=== PATIENT | male | born 1950 | race Caucasian/White ===

== ENCOUNTER → 2017-01-09 | Outpatient (CLI) | payer MEDICARE, OTHER ==
[~2017-01-09] MED LIST: AMLO2.5T PO; ATOR40TA16 PO; CARV3.12 PO; DORZ2SOL7 EACH EYE; LUMI0.01 EACH EYE; METF500T PO; OMEGCAP PO; [UNRECOGNIZED DRUG - REMARK]
[2017-01-09 13:26] LABS: ALKALINE PHOSPHATASE 80 U/L (45-117); ALT (GPT) 31 U/L (12-78); ANION GAP 8 MEQ/L (5-15); AST (GOT) 19 U/L (15-37); BICARBONATE 28.4 MEQ/L (21.0-32.0); BLOOD UREA NITROGEN 10 MG/DL (7-18); CHLORIDE 107 MEQ/L (98-107); GLOMERULAR FILTRATION RATE 63 ML/MIN (>89); GLUCOSE,FASTING 97 MG/DL (74-99); HDL CHOLESTEROL 53.8 MG/DL (40.0-60.0); LDL CHOLESTEROL 53 MG/DL (0-99); POTASSIUM 4.2 MEQ/L (3.5-5.1); SODIUM (NA) 143 MEQ/L (136-145); TOTAL BILIRUBIN ADULT 0.7 MG/DL (0.2-1.0); URIC ACID 7.2 MG/DL (2.6-7.2)
[2017-01-09 16:21] LABS: HEMOGLOBIN A1a 1.1 %; HEMOGLOBIN A1b 1.5 %; HEMOGLOBIN Ao 85.2 %; HEMOGLOBIN LA1C 2.1 %; HEMOGLOBIN P3 3.7 %
== END ==
LOC: PLAB 09:27
PROVIDERS: ATTEND Family Medicine
DX: I10 Essential (primary) hypertension (principal); E78.2 Mixed hyperlipidemia; E11.9 Type 2 diabetes mellitus without complications; M10.9 Gout, unspecified
CPT/HCPCS: 36415; 80053; 80061; 83036; 84550

== ENCOUNTER → 2017-07-17 | Outpatient (CLI) | payer MEDICARE, OTHER ==
[2017-07-17 13:23] LABS: AUTOMATED NEUTROPHIL # 4.5 TH/MM3 (1.8-7.7); BASOPHIL % 0.5 % (0.0-2.0); EOSINOPHIL # 0.2 TH/MM3 (0-0.4); EOSINOPHIL % 2.5 % (0.0-4.0); HEMATOCRIT 46.4 % (39.0-51.0); HEMO FLAGS DIFF FINAL; LYMPH % 22.9 % (9.0-44.0); LYMPHOCYTE # 1.5 TH/MM3 (1.0-4.8); MEAN CELL VOLUME 94.2 FL (80.0-100.0); MEAN CORPUSCULAR HEMOGLOBIN 31.7 PG (27.0-34.0); MEAN CORPUSCULAR HGB CONC 33.7 % (32.0-36.0); MONO % 6.8 % (0.0-8.0); NEUT % 67.3 % (16.0-70.0); PLATELET COUNT 205 TH/MM3 (150-450); RED BLOOD COUNT 4.93 MIL/MM3 (4.50-5.90); RED CELL DISTRIBUTION WIDTH 14.1 % (11.6-17.2); WHITE BLOOD COUNT 6.7 TH/MM3 (4.0-11.0)
[2017-07-17 13:41] LABS: ANION GAP 5 MEQ/L (5-15); AST (GOT) 16 U/L (15-37); BICARBONATE 25.9 MEQ/L (21.0-32.0); BLOOD UREA NITROGEN 15 MG/DL (7-18); CHLORIDE 109 MEQ/L (98-107); GLOMERULAR FILTRATION RATE 75 ML/MIN (>89); GLUCOSE,FASTING 118 MG/DL (74-99); POTASSIUM 4.4 MEQ/L (3.5-5.1); SODIUM (NA) 140 MEQ/L (136-145)
[2017-07-17 13:42] LABS: ALT (GPT) 23 U/L (12-78); URIC ACID 6.8 MG/DL (2.6-7.2)
[2017-07-17 13:45] LABS: ALKALINE PHOSPHATASE 76 U/L (45-117); HDL CHOLESTEROL 65.1 MG/DL (40.0-60.0); LDL CHOLESTEROL 138 MG/DL (0-99); TOTAL BILIRUBIN ADULT 0.7 MG/DL (0.2-1.0)
[2017-07-17 14:12] LABS: HEMOGLOBIN A1a 1.2 %; HEMOGLOBIN A1b 1.7 %; HEMOGLOBIN Ao 84.5 %; HEMOGLOBIN LA1C 2.4 %; HEMOGLOBIN P3 3.8 %
== END ==
LOC: PLAB 09:08
PROVIDERS: ATTEND Family Medicine
DX: E78.2 Mixed hyperlipidemia (principal); E11.9 Type 2 diabetes mellitus without complications; I10 Essential (primary) hypertension; M10.9 Gout, unspecified; Z12.5 Encounter for screening for malignant neoplasm of prostate
CPT/HCPCS: 36415; 80053; 80061; 83036; 84550; 85025; G0103

== ENCOUNTER → 2018-01-17 | Outpatient (CLI) | payer MEDICARE, OTHER ==
[2018-01-17 10:33] LABS: ALBUMIN 3.9 GM/DL (3.4-5.0); AST (GOT) 22 U/L (15-37); BICARBONATE 27.4 MEQ/L (21.0-32.0); BLOOD UREA NITROGEN 13 MG/DL (7-18); CALCIUM 9.1 MG/DL (8.5-10.1); CHLORIDE 108 MEQ/L (98-107); CREATININE 1.12 MG/DL (0.60-1.30); GLOMERULAR FILTRATION RATE 65 ML/MIN (>89); GLUCOSE,FASTING 119 MG/DL (74-99); SODIUM (NA) 143 MEQ/L (136-145)
[2018-01-17 10:35] LABS: ALT (GPT) 33 U/L (12-78); CHOLESTEROL 150 MG/DL (120-200)
[2018-01-17 10:39] LABS: ALKALINE PHOSPHATASE 73 U/L (45-117); CHOLESTEROL/ HDL RATIO 2.46 RATIO; HDL CHOLESTEROL 60.9 MG/DL (40.0-60.0); LDL CHOLESTEROL 70 MG/DL (0-99); TOTAL BILIRUBIN ADULT 0.7 MG/DL (0.2-1.0); TOTAL PROTEIN 6.8 GM/DL (6.4-8.2); TRIGLYCERIDES 94 MG/DL (42-150)
[2018-01-17 16:21] LABS: HEMOGLOBIN A1C 5.9 % (4.3-6.0)
== END ==
LOC: PLAB 08:36
PROVIDERS: ATTEND Family Medicine
DX: E11.9 Type 2 diabetes mellitus without complications (principal); E78.2 Mixed hyperlipidemia; I10 Essential (primary) hypertension; M10.9 Gout, unspecified
CPT/HCPCS: 36415; 80053; 80061; 83036; 84550